=== PATIENT | male | born 1980 | race Caucasian/White ===

== ENCOUNTER → 2016-08-01 | Outpatient (REF) | payer BC ==
[~2016-08-01] MED LIST: asa PO; percocet PO
== END ==
LOC: M LAB REF 16:27
PROVIDERS: ATTEND Internal Medicine
DX: E78.00 Pure hypercholesterolemia, unspecified (principal)

== ENCOUNTER → 2017-04-26 | Outpatient (REF) | payer BC ==
[2017-05-01 12:26] LABS: ALBUMIN 4.31 GM/DL (3.29-5.55); ALBUMIN % 61.6 % (55.8-66.1); GAMMA GLOBULIN % 13.1 % (11.1-18.8)
== END ==
LOC: M LAB REF 13:04
PROVIDERS: ATTEND Internal Medicine
DX: E83.52 Hypercalcemia (principal)

== ENCOUNTER → 2017-08-27 | Outpatient (CLI) | payer BC | LOC: M WUC 11:45 | DX: M25.521 Pain in right elbow (principal) | CPT/HCPCS: 73080 ==

== ENCOUNTER → 2017-10-02 | Outpatient (REF) | payer BC ==
[2017-10-04 08:06] LABS: LDL DIRECT 15 mg/dL (0-99)
== END ==
LOC: M LAB REF 17:13
DX: E78.1 Pure hyperglyceridemia (principal)
CPT/HCPCS: 83721

== ENCOUNTER → 2017-11-07 | Outpatient (REF) | payer BC ==
[2017-11-09 08:06] LABS: LDL DIRECT 79 mg/dL (0-99)
== END ==
LOC: M LAB REF 09:55
DX: E78.00 Pure hypercholesterolemia, unspecified (principal)
CPT/HCPCS: 83721

== ENCOUNTER 2018-05-08 06:32 | Inpatient (IN) | payer BC ==
[2018-05-08] MEDS: NS 1,000 ML IV ×5 (07:30→21:48)
[2018-05-08] MEDS: ONDANSETRON 4MG/2ML VIAL (J2405) IV ×2 (07:30→10:59)
[2018-05-08] MEDS: MORPHINE 4 MG/ML 1ML VIAL/SYRINGE (J2270) IV ×4 (07:32→12:44)
[2018-05-08 07:49] LABS: BASO % 0.3 % (0.0-1.0); EOS # 0.1 10^3/uL (0.0-0.50); EOS % 0.5 % (0.0-3.0); HEMATOCRIT 41.1 % (42.0-52.0); HEMOGLOBIN 14.7 g/dl (13.5-17.5); IMMATURE GRANULOCYTE % 0.6 % (0-3.0); LYMPH % 8.6 % (24.0-44.0); MEAN CORPUSCULAR HEMOGLOBIN 32.3 pg (27.0-33.0); MEAN CORPUSCULAR HGB CONC 35.8 g/dl (32.0-36.5); MEAN CORPUSCULAR VOLUME 90.3 fl (80.0-96.0); MONO # 0.8 10^3/uL (0.0-0.8); MONO % 6.7 % (0.0-5.0); NEUTROPHILS % 83.3 % (36.0-66.0); PLATELET COUNT, AUTOMATED 324 10^3/uL (150-450); RED BLOOD COUNT 4.55 10^6/uL (4.30-6.10); RED CELL DISTRIBUTION WIDTH 12.6 % (11.5-14.5)
[2018-05-08 07:59] LABS: ALBUMIN 4.3 GM/DL (3.2-5.2); ALKALINE PHOSPHATASE 44 U/L (45-117); ALT/SGPT 70 U/L (12-78); ANION GAP 11 MEQ/L (8-16); AST/SGOT 46 U/L (7-37); BILIRUBIN,DIRECT 0.3 MG/DL (0.0-0.2); BILIRUBIN,TOTAL 1.6 MG/DL (0.2-1.0); BLOOD UREA NITROGEN 18 MG/DL (7-18); CARBON DIOXIDE LEVEL 24 MEQ/L (21-32); CHLORIDE LEVEL 101 MEQ/L (98-107); CREATININE FOR GFR 1.28 MG/DL (0.70-1.30); GLOMERULAR FILTRATION RATE > 60.0 (>60); GLUCOSE, FASTING 112 MG/DL (70-100); LIPASE 3321 U/L (73-393); POTASSIUM SERUM 3.9 MEQ/L (3.5-5.1); SODIUM LEVEL 136 MEQ/L (136-145); TOTAL PROTEIN 7.6 GM/DL (6.4-8.2)
[2018-05-08 08:29] LABS: PROTHROMBIN TIME 13.3 SECONDS (12.1-14.4)
[2018-05-08 08:30] LABS: PARTIAL THROMBOPLASTIN TIME 26.5 SECONDS (25.4-37.6)
[2018-05-08] MEDS: amLODIPine 10 MG TAB PO (08:34)
[2018-05-08] MEDS: BENAZEPRIL 20 MG TAB PO (08:42)
[2018-05-08] MEDS: FENOFIBRATE 145 MG TAB (TRICOR) PO (09:00)
[2018-05-08] MEDS: KETOROLAC 30 MG/ML VIAL (J1885) IV (09:25)
[2018-05-08 11:06] LABS: CHOLESTEROL LEVEL 205 MG/DL (<200); CHOLESTEROL RISK RATIO 3.596 (<5); HDL CHOLESTEROL 57 MG/DL (>40); NON-HDL-C 148 MG/DL; TRIGLYCERIDES LEVEL 553 MG/DL (<150)
[2018-05-08] MEDS ORDERED: ONDANSETRON 4MG/2ML VIAL (J2405) IV (13:15)
[2018-05-08] MEDS ORDERED: MORPHINE 4 MG/ML 1ML VIAL/SYRINGE (J2270) IV (13:15)
[2018-05-08] MEDS: ENOXAPARIN 40 MG/0.4 ML SYRINGE (J1650) SC (13:24)
[2018-05-08] MEDS: HYDROmorphone HCL 2 MG/ML 1ML VIAL (J1170) IV ×3 (15:40→21:48)
[2018-05-08] MEDS: **hydrALAZINE HCL** 25 MG TAB PO (17:11)
[2018-05-09] MEDS: HYDROmorphone HCL 2 MG/ML 1ML VIAL (J1170) IV ×6 (00:54→19:39)
[2018-05-09] MEDS: **hydrALAZINE HCL** 25 MG TAB PO ×4 (00:55→16:22)
[2018-05-09] MEDS: KETOROLAC 30 MG/ML VIAL (J1885) IV (03:45)
[2018-05-09] MEDS: NS 1,000 ML IV ×4 (04:07→19:07)
[2018-05-09 06:07] LABS: MEAN CORPUSCULAR HEMOGLOBIN 31.7 pg (27.0-33.0); MEAN CORPUSCULAR HGB CONC 34.2 g/dl (32.0-36.5); MEAN CORPUSCULAR VOLUME 92.8 fl (80.0-96.0); RED BLOOD COUNT 3.88 10^6/uL (4.30-6.10); RED CELL DISTRIBUTION WIDTH 12.8 % (11.5-14.5); WHITE BLOOD COUNT 9.5 10^3/uL (4.0-10.0)
[2018-05-09 06:22] LABS: HEMOGLOBIN 12.3 g/dl (13.5-17.5); PLATELET COUNT, AUTOMATED 221 10^3/uL (150-450)
[2018-05-09 06:35] LABS: ALBUMIN/GLOBULIN RATIO 1.03 (1.00-1.93); ALKALINE PHOSPHATASE 33 U/L (45-117); ALT/SGPT 36 U/L (12-78); ANION GAP 9 MEQ/L (8-16); AST/SGOT 22 U/L (7-37); BILIRUBIN,TOTAL 1.3 MG/DL (0.2-1.0); BLOOD UREA NITROGEN 10 MG/DL (7-18); CALCIUM LEVEL 7.4 MG/DL (8.5-10.1); CARBON DIOXIDE LEVEL 25 MEQ/L (21-32); CHLORIDE LEVEL 105 MEQ/L (98-107); CREATININE FOR GFR 0.93 MG/DL (0.70-1.30); GLOMERULAR FILTRATION RATE > 60.0 (>60); GLUCOSE, FASTING 79 MG/DL (70-100); MAGNESIUM LEVEL 1.4 MG/DL (1.8-2.4); POTASSIUM SERUM 3.5 MEQ/L (3.5-5.1); SODIUM LEVEL 139 MEQ/L (136-145); TOTAL PROTEIN 5.9 GM/DL (6.4-8.2)
[2018-05-09] MEDS ORDERED: MAG SULF 1GM/100ML (MAG RUN) 1 GM in APPROPRIATE DILUENT 1 EA IV (09:00)
[2018-05-09 09:02] LABS: LIPASE 6218 U/L (73-393)
[2018-05-09] MEDS: MAG SULF 1GM/100ML (MAG RUN) 1 GM in APPROPRIATE DILUENT 1 EA IV ×2 (09:07→10:00)
[2018-05-09] MEDS: POTASSIUM CHLORIDE 10% LIQ 20 MEQ/15 ML UDC PO (09:08)
[2018-05-09] MEDS: PANTOPRAZOLE 40MG INJ (PROTONIX) (C9113) IV (09:08)
[2018-05-09] MEDS: ENOXAPARIN 40 MG/0.4 ML SYRINGE (J1650) SC (09:08)
[2018-05-09] MEDS: FENOFIBRATE 145 MG TAB (TRICOR) PO (09:10)
[2018-05-09] MEDS: amLODIPine 10 MG TAB PO (09:12)
[2018-05-09] MEDS: HYDROMORPHONE HCL 0.5 MG/ 0.5 ML SYRINGE (J1170 PER 1) IV ×2 (10:47→22:49)
[2018-05-10] MEDS: **hydrALAZINE HCL** 25 MG TAB PO ×4 (00:10→18:35)
[2018-05-10] MEDS: HYDROMORPHONE HCL 0.5 MG/ 0.5 ML SYRINGE (J1170 PER 1) IV ×2 (02:34→06:08)
[2018-05-10 06:24] LABS: HEMATOCRIT 34.6 % (42.0-52.0); MEAN CORPUSCULAR HEMOGLOBIN 31.9 pg (27.0-33.0); MEAN CORPUSCULAR HGB CONC 34.7 g/dl (32.0-36.5); PLATELET COUNT, AUTOMATED 225 10^3/uL (150-450); RED BLOOD COUNT 3.76 10^6/uL (4.30-6.10); RED CELL DISTRIBUTION WIDTH 12.6 % (11.5-14.5); WHITE BLOOD COUNT 9.3 10^3/uL (4.0-10.0)
[2018-05-10 07:01] LABS: ALBUMIN 2.8 GM/DL (3.2-5.2); ALBUMIN/GLOBULIN RATIO 0.76 (1.00-1.93); ALKALINE PHOSPHATASE 37 U/L (45-117); ALT/SGPT 31 U/L (12-78); ANION GAP 10 MEQ/L (8-16); AST/SGOT 18 U/L (7-37); BLOOD UREA NITROGEN 6 MG/DL (7-18); CALCIUM LEVEL 8.2 MG/DL (8.5-10.1); CARBON DIOXIDE LEVEL 24 MEQ/L (21-32); CHLORIDE LEVEL 102 MEQ/L (98-107); CREATININE FOR GFR 0.73 MG/DL (0.70-1.30); GLOMERULAR FILTRATION RATE > 60.0 (>60); GLUCOSE, FASTING 72 MG/DL (70-100); LIPASE 2849 U/L (73-393); POTASSIUM SERUM 3.6 MEQ/L (3.5-5.1); SODIUM LEVEL 136 MEQ/L (136-145); TOTAL PROTEIN 6.5 GM/DL (6.4-8.2)
[2018-05-10] MEDS: HYDROmorphone HCL 2 MG/ML 1ML VIAL (J1170) IV ×5 (09:23→21:28)
[2018-05-10] MEDS: FENOFIBRATE 145 MG TAB (TRICOR) PO (09:23)
[2018-05-10] MEDS: amLODIPine 10 MG TAB PO (09:23)
[2018-05-10] MEDS: PANTOPRAZOLE 40MG INJ (PROTONIX) (C9113) IV (09:23)
[2018-05-10] MEDS: ENOXAPARIN 40 MG/0.4 ML SYRINGE (J1650) SC (09:24)
[2018-05-10] MEDS: GASTROGRAFIN SOLUTION 30ML PO ×2 (15:12)
[2018-05-10] MEDS ORDERED: ISOVUE-370 76% 100ML VIAL (Q9967) As Ordered (16:06)
[2018-05-11] MEDS: HYDROmorphone HCL 2 MG/ML 1ML VIAL (J1170) IV ×7 (00:59→21:25)
[2018-05-11] MEDS: **hydrALAZINE HCL** 25 MG TAB PO ×4 (01:03→18:28)
[2018-05-11 06:45] LABS: HEMATOCRIT 34.8 % (42.0-52.0); HEMOGLOBIN 12.3 g/dl (13.5-17.5); MEAN CORPUSCULAR HEMOGLOBIN 31.9 pg (27.0-33.0); MEAN CORPUSCULAR HGB CONC 35.3 g/dl (32.0-36.5); MEAN CORPUSCULAR VOLUME 90.4 fl (80.0-96.0); PLATELET COUNT, AUTOMATED 264 10^3/uL (150-450); RED BLOOD COUNT 3.85 10^6/uL (4.30-6.10); RED CELL DISTRIBUTION WIDTH 12.5 % (11.5-14.5)
[2018-05-11 07:01] LABS: ALBUMIN 2.9 GM/DL (3.2-5.2); ALBUMIN/GLOBULIN RATIO 0.74 (1.00-1.93); ALKALINE PHOSPHATASE 39 U/L (45-117); ALT/SGPT 25 U/L (12-78); ANION GAP 8 MEQ/L (8-16); AST/SGOT 13 U/L (7-37); BILIRUBIN,TOTAL 0.5 MG/DL (0.2-1.0); BLOOD UREA NITROGEN 8 MG/DL (7-18); CARBON DIOXIDE LEVEL 27 MEQ/L (21-32); CHLORIDE LEVEL 100 MEQ/L (98-107); CREATININE FOR GFR 0.75 MG/DL (0.70-1.30); GLOMERULAR FILTRATION RATE > 60.0 (>60); GLUCOSE, FASTING 143 MG/DL (70-100); MAGNESIUM LEVEL 2.3 MG/DL (1.8-2.4); POTASSIUM SERUM 3.4 MEQ/L (3.5-5.1); SODIUM LEVEL 135 MEQ/L (136-145); TOTAL PROTEIN 6.8 GM/DL (6.4-8.2)
[2018-05-11] MEDS: FENOFIBRATE 145 MG TAB (TRICOR) PO (07:59)
[2018-05-11] MEDS: PANTOPRAZOLE 40MG INJ (PROTONIX) (C9113) IV (07:59)
[2018-05-11] MEDS: ENOXAPARIN 40 MG/0.4 ML SYRINGE (J1650) SC (07:59)
[2018-05-11] MEDS: amLODIPine 10 MG TAB PO (07:59)
[2018-05-12] MEDS: **hydrALAZINE HCL** 25 MG TAB PO ×4 (00:26→18:28)
[2018-05-12] MEDS: HYDROmorphone HCL 2 MG/ML 1ML VIAL (J1170) IV ×5 (00:27→16:23)
[2018-05-12 05:49] LABS: HEMATOCRIT 32.1 % (42.0-52.0); HEMOGLOBIN 11.3 g/dl (13.5-17.5); MEAN CORPUSCULAR HEMOGLOBIN 32.1 pg (27.0-33.0); MEAN CORPUSCULAR HGB CONC 35.2 g/dl (32.0-36.5); MEAN CORPUSCULAR VOLUME 91.2 fl (80.0-96.0); PLATELET COUNT, AUTOMATED 267 10^3/uL (150-450); RED BLOOD COUNT 3.52 10^6/uL (4.30-6.10); RED CELL DISTRIBUTION WIDTH 12.7 % (11.5-14.5); WHITE BLOOD COUNT 6.5 10^3/uL (4.0-10.0)
[2018-05-12 06:13] LABS: ALBUMIN/GLOBULIN RATIO 0.79 (1.00-1.93); ALKALINE PHOSPHATASE 48 U/L (45-117); ALT/SGPT 33 U/L (12-78); ANION GAP 8 MEQ/L (8-16); AST/SGOT 28 U/L (7-37); BILIRUBIN,TOTAL 0.3 MG/DL (0.2-1.0); BLOOD UREA NITROGEN 14 MG/DL (7-18); CALCIUM LEVEL 8.8 MG/DL (8.5-10.1); CARBON DIOXIDE LEVEL 26 MEQ/L (21-32); CHLORIDE LEVEL 103 MEQ/L (98-107); CREATININE FOR GFR 0.88 MG/DL (0.70-1.30); GLOMERULAR FILTRATION RATE > 60.0 (>60); GLUCOSE, FASTING 136 MG/DL (70-100); MAGNESIUM LEVEL 1.9 MG/DL (1.8-2.4); POTASSIUM SERUM 3.2 MEQ/L (3.5-5.1); SODIUM LEVEL 137 MEQ/L (136-145); TOTAL PROTEIN 6.8 GM/DL (6.4-8.2)
[2018-05-12] MEDS: PANTOPRAZOLE 40MG INJ (PROTONIX) (C9113) IV (09:06)
[2018-05-12] MEDS: ENOXAPARIN 40 MG/0.4 ML SYRINGE (J1650) SC (09:06)
[2018-05-12] MEDS: FENOFIBRATE 145 MG TAB (TRICOR) PO (09:07)
[2018-05-12] MEDS: amLODIPine 10 MG TAB PO (09:07)
[2018-05-12] MEDS: POTASSIUM CHLORIDE 10 MEQ SR TABLET PO (09:07)
[2018-05-12 09:39] LABS: C REACTIVE PROTEIN QUANTITATIV 5.69 MG/DL (0.00-0.30)
[2018-05-12] MEDS ORDERED: PERCOCET 5MG/325MG TAB PO (15:15)
[2018-05-12] MEDS: PERCOCET 5MG/325MG TAB PO ×2 (18:26→22:36)
[2018-05-13] MEDS: **hydrALAZINE HCL** 25 MG TAB PO ×2 (01:11→06:59)
[2018-05-13] MEDS: PERCOCET 5MG/325MG TAB PO ×2 (02:56→07:06)
[2018-05-13 06:35] LABS: HEMATOCRIT 33.2 % (42.0-52.0); HEMOGLOBIN 11.4 g/dl (13.5-17.5); MEAN CORPUSCULAR HEMOGLOBIN 31.4 pg (27.0-33.0); MEAN CORPUSCULAR HGB CONC 34.3 g/dl (32.0-36.5); MEAN CORPUSCULAR VOLUME 91.5 fl (80.0-96.0); PLATELET COUNT, AUTOMATED 306 10^3/uL (150-450); RED BLOOD COUNT 3.63 10^6/uL (4.30-6.10); RED CELL DISTRIBUTION WIDTH 12.5 % (11.5-14.5); WHITE BLOOD COUNT 5.6 10^3/uL (4.0-10.0)
[2018-05-13 06:55] LABS: ALBUMIN/GLOBULIN RATIO 0.97 (1.00-1.93); ALKALINE PHOSPHATASE 44 U/L (45-117); ALT/SGPT 40 U/L (12-78); ANION GAP 8 MEQ/L (8-16); AST/SGOT 31 U/L (7-37); BILIRUBIN,TOTAL 0.3 MG/DL (0.2-1.0); BLOOD UREA NITROGEN 16 MG/DL (7-18); C REACTIVE PROTEIN QUANTITATIV 4.02 MG/DL (0.00-0.30); CALCIUM LEVEL 8.6 MG/DL (8.5-10.1); CARBON DIOXIDE LEVEL 26 MEQ/L (21-32); CHLORIDE LEVEL 106 MEQ/L (98-107); CREATININE FOR GFR 0.89 MG/DL (0.70-1.30); GLOMERULAR FILTRATION RATE > 60.0 (>60); GLUCOSE, FASTING 100 MG/DL (70-100); POTASSIUM SERUM 3.7 MEQ/L (3.5-5.1); SODIUM LEVEL 140 MEQ/L (136-145); TOTAL PROTEIN 6.1 GM/DL (6.4-8.2)
[2018-05-13] MEDS: PANTOPRAZOLE 40MG INJ (PROTONIX) (C9113) IV (09:46)
[2018-05-13] MEDS: ENOXAPARIN 40 MG/0.4 ML SYRINGE (J1650) SC (09:46)
[2018-05-13] MEDS: amLODIPine 10 MG TAB PO (10:48)
[2018-05-13] MEDS: FENOFIBRATE 145 MG TAB (TRICOR) PO (10:48)
== END 2018-05-13 11:30 | disposition home or self-care (01) | DRG 282 ==
LOC: M PED 05-12 23:25 → M ED 06:32 → M ED INP 13:07 → M MS5PR 15:15
DX: K85.90 Acute pancreatitis without necrosis or infection, unspecified (principal); I10 Essential (primary) hypertension; E78.1 Pure hyperglyceridemia; E78.5 Hyperlipidemia, unspecified; K21.9 Gastro-esophageal reflux disease without esophagitis; Z79.899 Other long term (current) drug therapy; Z88.8 Allergy status to other drugs, medicaments and biological substances

== ENCOUNTER 2018-11-24 10:26 | Inpatient (IN) | payer BC ==
[~2018-11-24] VITALS: Ht 177.8 cm; Wt 84.5 kg
[2018-11-24] MEDS: LR 1,000 ML IV SCH ×3 (01:50→18:45)
[~2018-11-24 10:26] MED LIST changes: +AMLO10CA29 PO; +AMLODIPINE BENAZEP; +FENO145T13; +FENO145T13 PO; +NAPR-855 PO; +OMEP-221 PO; +PERC5TAB12 PO; +TRAM50TA2 PO
[2018-11-24] MEDS ORDERED: NS 1,000 ML IV ONE (11:15)
[2018-11-24] MEDS ORDERED: KETOROLAC 30 MG/ML VIAL (J1885) IV ONE (11:15)
[2018-11-24] MEDS ORDERED: ONDANSETRON 4MG/2ML VIAL (J2405) IV ONE (11:15)
[2018-11-24 11:41] LABS: BASO # 0.1 10^3/uL (0.0-0.2); BASO % 0.5 % (0.0-1.0); EOS # 0.3 10^3/uL (0.0-0.50); EOS % 2.5 % (0.0-3.0); HEMATOCRIT 38.5 % (42.0-52.0); LYMPH # 1.4 10^3/uL (1.5-4.5); LYMPH % 12.3 % (24.0-44.0); MEAN CORPUSCULAR HEMOGLOBIN 32.6 pg (27.0-33.0); MEAN CORPUSCULAR HGB CONC 36.4 g/dl (32.0-36.5); MEAN CORPUSCULAR VOLUME 89.7 fl (80.0-96.0); MONO # 0.8 10^3/uL (0.0-0.8); MONO % 7.3 % (0.0-5.0); NEUTROPHILS # 8.9 10^3/uL (1.8-7.7); NEUTROPHILS % 77.2 % (36.0-66.0); PLATELET COUNT, AUTOMATED 285 10^3/uL (150-450); RED BLOOD COUNT 4.29 10^6/uL (4.30-6.10); WHITE BLOOD COUNT 11.5 10^3/uL (4.0-10.0)
[2018-11-24 12:19] LABS: ALBUMIN 3.7 GM/DL (3.2-5.2); ALT/SGPT 61 U/L (12-78); AMYLASE 48 U/L (25-115); BILIRUBIN,TOTAL 0.9 MG/DL (0.2-1.0); BLOOD UREA NITROGEN 20 MG/DL (7-18); CALCIUM LEVEL 8.8 MG/DL (8.5-10.1); CARBON DIOXIDE LEVEL 25 MEQ/L (21-32); CHLORIDE LEVEL 102 MEQ/L (98-107); CREATININE FOR GFR 0.94 MG/DL (0.70-1.30); GLOMERULAR FILTRATION RATE > 60.0 (>60); GLUCOSE, FASTING 110 MG/DL (70-100); LIPASE 835 U/L (73-393); POTASSIUM SERUM 3.9 MEQ/L (3.5-5.1); SODIUM LEVEL 135 MEQ/L (136-145); TOTAL PROTEIN 7.5 GM/DL (6.4-8.2)
[2018-11-24] MEDS ORDERED: HYDROMORPHONE HCL 0.5 MG/ 0.5 ML SYRINGE (J1170 PER 1) IV ONE (13:15)
[2018-11-24] MEDS ORDERED: SODIUM CHLORIDE 0.9% 1000ML IV ONE (13:45)
--- NOTE | 2018-11-24 13:51 | REP ---
CT ABDOMEN AND PELVIS WITHOUT CONTRAST: CT abdomen and pelvis is performed without oral or IV contrast. Sagittal and coronal reconstruction images are performed. No infiltrate is seen in the visualized lung bases. There is focal fatty infiltration of the liver anteriorly along the fissure for the ligamentum teres. Spleen, adrenals, and kidneys are unremarkable. There is on hydronephrosis or nephrolithiasis and no evidence of hydroureter. There is diffuse streaky inflammation in the peripancreatic fat compatible with mild pancreatitis. There is no free fluid or fluid collection. No pseudocyst is seen. There is no abdominal aortic aneurysm. There is no adenopathy. There is no free air. No bowel wall thickening is seen. The appendix is normal. Urinary bladder is mildly distended and grossly unremarkable. There appears to be very small inguinal hernias containing fat. IMPRESSION: Findings compatible with mild pancreatitis. No free fluid or pseudocyst seen. Electronically Signed by Alex Meadows MD 11/24/2018 04:38 P
[2018-11-24] MEDS ORDERED: TRAM50TA2 PO (14:17)
[2018-11-24] MEDS ORDERED: BENA25CA4 PO (14:17)
[2018-11-24] MEDS ORDERED: BUPR300T34 PO (14:17)
[2018-11-24] MEDS ORDERED: TIZA4TAB4 PO (14:18)
[2018-11-24 14:22] LABS: ETHYL ALCOHOL (ETHANOL) 0.113 % (0.000-0.010)
--- NOTE | 2018-11-24 15:09 | HPEPDOC ---
General Date of Admission 11/24/18 Date of Service: Nov 24, 2018 Chief Complaint The patient is a 38-year-old male admitted with a reason for visit of Abd Pain. Source: Patient, Old records Exam Limitations: No limitations Severity: Severe History of Present Illness 38-year-old male with past medical history of hypertension, dyslipidemia, and GERD, Acute Pancreatitis in 2018, regular alcohol use about 4 to 5 drinks per night, his last drink he says was about 36 hours ago. He presented to the ER with a chief complaint of abdominal pain. The patient states that his pain started all of a sudden 3 days ago and notes that it is 8 out of 10 in intensity, constant with intermitted sharp spasmodic in quality, located at the left upper quadrant and in the epigastrium and periumbilical area without any radiation. It is associated with nausea and was vomiting profusely yeasterday about 10 times. Also his has been having abnormal stools which are light in color, semisoft small amounts several times a day. In th ED he was found to have elevated lipase , elevated alcohol level in blood and CT abdomen and pelvis was suggestive of[ acute pancreatitis. His Gall bladder US was negative for any gall stones or choledocholithiasis. Patient was admitted for acute Pancreatitis. Home Medications Scheduled Amlodipine Besylate/Benazepril (Amlodipine-Benazepril 10-40 mg) 1 Cap Cap, 1 CAP PO BID, (Reported) Bupropion HCl (Bupropion Xl) 300 Mg Tab.er.24h, 300 MG PO DAILY, (Reported) Diphenhydramine HCl (Benadryl) 25 Mg Capsule, 75 MG PO QHS, (Reported) Fenofibrate Nanocrystallized (Fenofibrate) 145 Mg Tab, 145 MG PO DAILY, (Reported) Omeprazole (Omeprazole) 40 Mg Cap, 40 MG PO DAILY, (Reported) Tizanidine HCl (Tizanidine HCl) 4 Mg Tablet, 4 MG PO QHS, (Reported) Scheduled PRN Tramadol HCl (Tramadol HCl) 50 Mg Tablet, 50 MG PO Q6H PRN for PAIN, (Reported) Allergies Coded Allergies: acetaminophen (Verified Allergy, Unknown, RASH, 11/24/18) cefaclor (Verified Allergy, Unknown, RASH, 11/24/18) cephalexin (Verified Allergy, Unknown, RASH, 11/24/18) hydrocodone (Verified Allergy, Unknown, RASH, 11/24/18) Past Medical History Medical History hypertension, dyslipidemia, and GERD, Acute Pancreatitis in 2018, regular alcohol use Surgical History None Family History Significant Family History: Hypertension (father and mother), Other (sister and uncle with pancreas problems) Social History * Smoker: Denies Alcohol: heavy Drugs: denies A-FIB/CHADSVASC A-FIB History Current/History of A-Fib/PAF?: No Review of Systems Constitutional: Denies: Chills, Fever, Night Sweats Eyes: Denies: Pain, Vision change ENT: Denies: Head Aches, Ear Pain, Dysphagia Skin: Denies: Rash, Lesions, Breakdown Pulmonary: Denies: Dyspnea, Cough Cardiovascular: Denies: Chest Pain, Palpitations, Orthopnea, Paroxysmal Noc. Dyspnea, Lt Headedness Gastrointestinal: Reports: Nausea, Vomiting, Abdominal Pain, Other Symptoms (abnormal stools) Genitourinary: Denies: Dysuria, Frequency, Incontinence, Retention Hematologic: Denies: Bruising, Bleeding Excessively Musculoskeletal: Denies: Neck Pain, Back Pain, Joint Pain, Muscle Pain, Spasms Neurological: Denies: Weakness, Numbness, Change in speech, Confusion Physical Examination General Exam: Positive: Alert, Cooperative, Mild Distress Eye Exam: Positive: PERRLA, Conjunctiva & lids normal, EOMI; Negative: Sclera icteric ENT Exam: Positive: Atraumatic, Mucous membr. moist/pink, Pharynx Normal Neck Exam: Positive: Supple; Negative: JVD, thyromegaly Chest Exam: Positive: Clear to auscultation, Normal air movement Heart Exam: Positive: Rate Normal, Regular Rhythm, Normal S1, Normal S2; Negative: Murmurs, Rubs Abdomen Exam: Positive: BS Hyperactive, Soft, Tenderness (left upper quadrant, epigastrium), Other (rebound tenderness in the left upper quadrant, no guarding or rigidity) Extremity Exam: Positive: Normal pulses; Negative: Clubbing, Cyanosis, Edema Skin Exam: Positive: Nl turgor and temperature; Negative: Breakdown, Lesion Neuro Exam: Positive: Normal Gait, Normal Speech, Cranial Nerves 3-12 NL, Reflexes 2+ Vital Signs Vital Signs Date Time Temp Pulse Resp B/P (MAP) Pulse Ox O2 Delivery O2 Flow Rate FiO2 11/24/18 13:35 20 11/24/18 11:31 11/24/18 10:26 97.6 88 99 Room Air Laboratory Data Labs 24H Laboratory Tests 2 11/24/18 11:08: Immature Granulocyte % (Auto) 0.2, White Blood Count 11.5H, Red Blood Count 4.29L, Hemoglobin 14.0, Hematocrit 38.5L, Mean Corpuscular Volume 89.7, Mean Corpuscular Hemoglobin 32.6, Mean Corpuscular Hemoglobin Concent 36.4, Red Cell Distribution Width 11.7, Platelet Count 285, Neutrophils (%) (Auto) 77.2H, Lymphocytes (%) (Auto) 12.3L, Monocytes (%) (Auto) 7.3H, Eosinophils (%) (Auto) 2.5, Basophils (%) (Auto) 0.5, Neutrophils # (Auto) 8.9H, Lymphocytes # (Auto) 1.4L, Monocytes # (Auto) 0.8, Eosinophils # (Auto) 0.3, Basophils # (Auto) 0.1, Nucleated Red Blood Cells % (auto) 0.0, Anion Gap 8, Glomerular Filtration Rate > 60.0, Blood Urea Nitrogen 20H, Creatinine 0.94, Sodium Level 135L, Potassium Level 3.9, Chloride Level 102, Carbon Dioxide Level 25, Calcium Level 8.8, Aspartate Amino Transf (AST/SGOT) 67H, Alanine Aminotransferase (ALT/SGPT) 61, Alkaline Phosphatase 38L, Total Bilirubin 0.9, Total Protein 7.5, Albumin 3.7, Albumin/Globulin Ratio 0.97L, Amylase Level 48, Lipase 835H CBC/BMP Laboratory Tests 11/24/18 11:08 Red Blood Count 4.29 L, Mean Corpuscular Volume 89.7, Mean Corpuscular Hemoglobin 32.6, Mean Corpuscular Hemoglobin Concent 36.4, Red Cell Distribution Width 11.7, Neutrophils (%) (Auto) 77.2 H, Lymphocytes (%) (Auto) 12.3 L, Monocytes (%) (Auto) 7.3 H, Eosinophils (%) (Auto) 2.5, Basophils (%) (Auto) 0.5, Neutrophils # (Auto) 8.9 H, Lymphocytes # (Auto) 1.4 L, Monocytes # (Auto) 0.8, Eosinophils # (Auto) 0.3, Basophils # (Auto) 0.1, Calcium Level 8.8, Aspartate Amino Transf (AST/SGOT) 67 H, Alanine Aminotransferase (ALT/SGPT) 61, Alkaline Phosphatase 38 L, Total Bilirubin 0.9, Total Protein 7.5, Albumin 3.7 Assessment/Plan 38-year-old male with past medical history of hypertension, dyslipidemia, and GERD, Acute Pancreatitis in 2018, regular alcohol use about 4 to 5 drinks per night, his last drink he says was about 36 hours ago. He presented to the ER with a chief complaint of abdominal pain. The patient states that his pain started all of a sudden 3 days ago and notes that it is 8 out of 10 in in tensity, constant with intermitted sharp spasmodic in quality, located at the left upper quadrant and in the epigastrium and periumbilical area without any radiation. It is associated with nausea and was vomiting profusely yeasterday about 10 times. Also his has been having abnormal stools which are light in color, semisoft small amounts several times a day. In th ED he was found to have elevated lipase , elevated alcohol level in blood and CT abdomen and pelvis was suggestive of[ acute pancreatitis. His Gall bladder US was negative for any gall stones or choledocholithiasis. Patient was admitted for acute Pancreatitis. Acute pancreatitis alcohol related NPO Ringers lactate Dilaudid for pain control and zofran Hypertension will hold amlodipine and benzapril today. will start from tomorrow Hypertriglyceridemia lipid panel will hold fenofibrate today. Alcohol dependence discussed about quitting. GERD PPI DVT prophylaxis ordered Plan / VTE VTE Prophylaxis Ordered?: Yes HAO GLEASON MD Nov 24, 2018 13:55
[2018-11-24 15:26] VITALS: BP 147/94
[2018-11-24] MEDS: PANTOPRAZOLE 40MG INJ (PROTONIX) (C9113) IV SCH (15:34)
[2018-11-24] MEDS: HYDROMORPHONE HCL 0.5 MG/ 0.5 ML SYRINGE (J1170 PER 1) IV PRN ×3 (15:34→21:38)
[2018-11-24 16:29] LABS: CHOLESTEROL LEVEL 195 MG/DL (<200); CHOLESTEROL RISK RATIO 3.611 (<5); HDL CHOLESTEROL 54 MG/DL (>40); NON-HDL-C 141 MG/DL; TRIGLYCERIDES LEVEL 806 MG/DL (<150)
[2018-11-24] MEDS: amLODIPine 10 MG TAB PO SCH (21:39)
[2018-11-24 21:45] VITALS: BP 165/106
[2018-11-24 22:00] VITALS: BP 167/107
[2018-11-24 22:16] VITALS: BP 179/118
[2018-11-24 22:17] VITALS: BP 174/106
[2018-11-24] MEDS: KETOROLAC 30 MG/ML VIAL (J1885) IV SCH (22:45)
[2018-11-24] MEDS: ONDANSETRON 4MG/2ML VIAL (J2405) IV PRN (23:14)
[2018-11-25] MEDS: HYDROMORPHONE HCL 0.5 MG/ 0.5 ML SYRINGE (J1170 PER 1) IV PRN ×8 (00:34→22:25)
[2018-11-25] MEDS: KETOROLAC 30 MG/ML VIAL (J1885) IV SCH ×4 (05:13→23:17)
[2018-11-25 05:42] LABS: BASO % 0.3 % (0.0-1.0); EOS # 0.2 10^3/uL (0.0-0.50); EOS % 2.2 % (0.0-3.0); HEMATOCRIT 37.8 % (42.0-52.0); HEMOGLOBIN 13.8 g/dl (13.5-17.5); LYMPH # 0.8 10^3/uL (1.5-4.5); LYMPH % 8.7 % (24.0-44.0); MEAN CORPUSCULAR HEMOGLOBIN 32.6 pg (27.0-33.0); MEAN CORPUSCULAR HGB CONC 36.5 g/dl (32.0-36.5); MEAN CORPUSCULAR VOLUME 89.4 fl (80.0-96.0); MONO # 0.7 10^3/uL (0.0-0.8); MONO % 6.8 % (0.0-5.0); NEUTROPHILS # 7.8 10^3/uL (1.8-7.7); NEUTROPHILS % 81.6 % (36.0-66.0); PLATELET COUNT, AUTOMATED 242 10^3/uL (150-450); RED BLOOD COUNT 4.23 10^6/uL (4.30-6.10); WHITE BLOOD COUNT 9.6 10^3/uL (4.0-10.0)
[2018-11-25 06:00] VITALS: BP 160/102
[2018-11-25 06:06] LABS: BLOOD UREA NITROGEN 11 MG/DL (7-18); CALCIUM LEVEL 8.2 MG/DL (8.5-10.1); CARBON DIOXIDE LEVEL 27 MEQ/L (21-32); CHLORIDE LEVEL 100 MEQ/L (98-107); CREATININE FOR GFR 0.84 MG/DL (0.70-1.30); GLOMERULAR FILTRATION RATE > 60.0 (>60); GLUCOSE, FASTING 85 MG/DL (70-100); LIPASE 1467 U/L (73-393); MAGNESIUM LEVEL 1.6 MG/DL (1.8-2.4); POTASSIUM SERUM 3.3 MEQ/L (3.5-5.1); SODIUM LEVEL 134 MEQ/L (136-145)
[2018-11-25] MEDS: LR 1,000 ML IV SCH (06:35)
[2018-11-25] MEDS ORDERED: MAG SULF 1GM/100ML (MAG RUN) 1 GM in APPROPRIATE DILUENT 1 EA IV ONE (06:45)
--- NOTE | 2018-11-25 06:51 | REP ---
RIGHT UPPER QUADRANT ULTRASOUND: Real-time sonographic evaluation of the right upper quadrant performed. Gallbladder demonstrates no evidence of intraluminal sludge or calculi, wall thickening or pericholecystic fluid. There is no intrahepatic or extrahepatic biliary dilatation, common bile duct measuring 5 mm. Liver is enlarged and demonstrates diffuse increased echotexture compatible with diffuse fibrofatty infiltration. Length is 19.5 cm. No gross liver or pancreatic mass is seen. Pancreas is not optimally seen due to overlying bowel gas. Right kidney demonstrates no hydronephrosis with normal size 10.9 cm in length. IMPRESSION: Mild hepatomegaly with diffuse fibrofatty infiltration of the liver. No gallstones, gallbladder wall thickening, pericholecystic fluid or biliary dilatation. Electronically Signed by Alex Meadows MD 11/25/2018 08:27 A
[2018-11-25] MEDS: amLODIPine 10 MG TAB PO SCH ×2 (09:00→20:23)
[2018-11-25] MEDS: ENOXAPARIN 40 MG/0.4 ML SYRINGE (J1650) SC SCH (09:01)
[2018-11-25] MEDS: buPROPion **XL** TABLET 150MG (WELLBUTRIN XL) PO SCH (10:14)
[2018-11-25] MEDS: POTASSIUM CHLORIDE INJ 40 MEQ in LR 1,000 ML IV SCH ×3 (10:14→20:23)
[2018-11-25] MEDS: ONDANSETRON 4MG/2ML VIAL (J2405) IV PRN (11:13)
--- NOTE | 2018-11-25 11:21 | IPNPDOC ---
Subjective Date Seen The patient was seen on 11/25/18. Subjective Chief Complaint/HPI Continues to have severe abdominal pain located at the left upper quadrant and periumbilical region with intermittent cramps. No improvement yet. No appetite. no fever or chills, no vomiting but still has nausea. Says the K pad is helping Objective Physical Examination General Exam: Positive: Alert, Cooperative, Mild Distress Eye Exam: Positive: PERRLA, Conjunctiva & lids normal, EOMI; Negative: Sclera icteric ENT Exam: Positive: Atraumatic, Mucous membr. moist/pink, Pharynx Normal Neck Exam: Positive: Supple; Negative: JVD, thyromegaly Chest Exam: Positive: Clear to auscultation, Normal air movement Heart Exam: Positive: Rate Normal, Regular Rhythm, Normal S1, Normal S2; Negative: Murmurs, Rubs Abdomen Exam: Positive: BS Hyperactive, Soft, Tenderness (left upper quadrant, epigastrium), Other (rebound tenderness in the left upper quadrant, no guarding or rigidity) Extremity Exam: Positive: Normal pulses; Negative: Clubbing, Cyanosis, Edema Skin Exam: Positive: Nl turgor and temperature; Negative: Breakdown, Lesion Neuro Exam: Positive: Normal Gait, Normal Speech, Cranial Nerves 3-12 NL, Reflexes 2+ Assessment /Plan Assessment 38-year-old male with past medical history of hypertension, dyslipidemia, and GERD, Acute Pancreatitis in 2018, regular alcohol use about 4 to 5 drinks per night, his last drink he says was about 36 hours ago. He presented to the ER with a chief complaint of abdominal pain. The patient states that his pain sta rted all of a sudden 3 days ago and notes that it is 8 out of 10 in intensity, constant with intermitted sharp spasmodic in quality, located at the left upper quadrant and in the epigastrium and periumbilical area without any radiation. It is associated with nausea and was vomiting profusely yeasterday about 10 times. Also his has been having abnormal stools which are light in color, semisoft smal l amounts several times a day. In the ED he was found to have elevated lipase , elevated alcohol level in blood and CT abdomen and pelvis was suggestive of acute pancreatitis. His Gall bladder US was negative for any gall stones or choledocholithiasis. Patient was admitted for acute Pancreatitis. Acute pancreatitis alcohol related NPO Ringers lactate Dilaudid for pain control and zofran, ketorolac. Lipase is on the rise. If does not start improving in [address] scan. Hypokalemia replaced Hypertension will hold amlodipine and benzapril today. will start from tomorrow Hypertriglyceridemia lipid panel hold fenofibrate Alcohol dependence discussed about quitting. continue bupropion. GERD PPI Plan/VTE VTE Prophylaxis Ordered?: Yes VS, I&O, 24H, Fishbone Vital Signs/I&O Vital Signs Date Time Temp Pulse Resp B/P (MAP) Pulse Ox O2 Delivery O2 Flow Rate FiO2 11/25/18 09:00 117 160/102 11/25/18 06:35 18 11/25/18 06:00 99.5 95 11/24/18 13:57 Room Air I&O- Last 24 Hours up to 6 AM 11/25/18 06:00 Intake Total 750 ml Output Total 1950 ml Balance -1200 ml Laboratory Data 24H LABS Laboratory Tests 2 11/24/18 11:08: Immature Granulocyte % (Auto) 0.2, White Blood Count 11.5H, Red Blood Count 4.29L, Hemoglobin 14.0, Hematocrit 38.5L, Mean Corpuscular Volume 89.7, Mean Corpuscular Hemoglobin 32.6, Mean Corpuscular Hemoglobin Concent 36.4, Red Cell Distribution Width 11.7, Platelet Count 285, Neutrophils (%) (Auto) 77.2H, Lymphocytes (%) (Auto) 12.3L, Monocytes (%) (Auto) 7.3H, Eosinophils (%) (Auto) 2.5, Basophils (%) (Auto) 0.5, Neutrophils # (Auto) 8.9H, Lymphocytes # (Auto) 1.4L, Monocytes # (Auto) 0.8, Eosinophils # (Auto) 0.3, Basophils # (Auto) 0.1, Nucleated Red Blood Cells % (auto) 0.0, Anion Gap 8, Glomerular Filtration Rate > 60.0, Blood Urea Nitrogen 20H, Creatinine 0.94, Sodium Level 135L, Potassium Level 3.9, Chloride Level 102, Carbon Dioxide Level 25, Calcium Level 8.8, Aspartate Amino Transf (AST/SGOT) 67H, Alanine Aminotransferase (ALT/SGPT) 61, Alkaline Phosphatase 38L, Total Bilirubin 0.9, Triglycerides Level 806H, LDL Cholesterol , Total Protein 7.5, Albumin 3.7, Albumin/Globulin Ratio 0.97L, Total Cholesterol 195, Non-HDL Cholesterol (LDL + VLDL) 141, Total HDL Cholesterol 54, Cholesterol/HDL Ratio 3.611, Amylase Level 48, Lipase 835H, Ethyl Alcohol Level 0.113H 11/24/18 13:49: Urine Color YELLOW, Urine Appearance CLEAR, Urine pH 5.0, Urine Specific [place] 1.028, Urine Protein NEGATIVE, Urine Glucose (UA) NEGATIVE, Urine Ketones TRACEH, Urine Blood NEGATIVE, Urine Nitrite NEGATIVE, Urine Bilirubin NEGATIVE, Urine Urobilinogen 0.2, Urine Leukocyte Esterase NEGATIVE, Urine WBC (Auto) 1, Urine RBC (Auto) 1, Urine Hyaline Casts (Auto) 0, Urine Bacteria (Auto) NEGATIVE, Urine Squamous Epithelial Cells 0, Urine Mucus (Auto) SMALL, Urine Sperm (Auto) 11/25/18 05:19: Immature Granulocyte % (Auto) 0.4, White Blood Count 9.6, Red Blood Count 4.23L, Hemoglobin 13.8, Hematocrit 37.8L, Mean Corpuscular Volume 89.4, Mean Corpuscular Hemoglobin 32.6, Mean Corpuscular Hemoglobin Concent 36.5, Red Cell Distribution Width 11.6, Platelet Count 242, Neutrophils (%) (Auto) 81.6H, Lymphocytes (%) (Auto) 8.7L, Monocytes (%) (Auto) 6.8H, Eosinophils (%) (Auto) 2.2, Basophils (%) (Auto) 0.3, Neutrophils # (Auto) 7.8H, Lymphocytes # (Auto) 0.8L, Monocytes # (Auto) 0.7, Eosinophils # (Auto) 0.2, Basophils # (Auto) 0.0, Nucleated Red Blood Cells % (auto) 0.0, Anion Gap 7L, Glomerular Filtration Rate > 60.0, Blood Urea Nitrogen 11, Creatinine 0.84, Sodium Level 134L, Potassium Level 3.3L, Chloride Level 100, Carbon Dioxide Level 27, Calcium Level 8.2L, Lipase 1467H, Magnesium Level 1.6L CBC/BMP Laboratory Tests 11/24/18 11:08 Red Blood Count 4.29 L, Mean Corpuscular Volume 89.7, Mean Corpuscular Hemoglobin 32.6, Mean Corpuscular Hemoglobin Concent 36.4, Red Cell Distribution Width 11.7, Neutrophils (%) (Auto) 77.2 H, Lymphocytes (%) (Auto) 12.3 L, Monocytes (%) (Auto) 7.3 H, Eosinophils (%) (Auto) 2.5, Basophils (%) (Auto) 0.5, Neutrophils # (Auto) 8.9 H, Lymphocytes # (Auto) 1.4 L, Monocytes # (Auto) 0.8, Eosinophils # (Auto) 0.3, Basophils # (Auto) 0.1, Calcium Level 8.8, Aspartate Amino Transf (AST/SGOT) 67 H, Alanine Aminotransferase (ALT/SGPT) 61, Alkaline Phosphatase 38 L, Total Bilirubin 0.9, Triglycerides Level 806 H, LDL Cholesterol , Total Protein 7.5, Albumin 3.7 11/25/18 05:19 Red Blood Count 4.23 L, Mean Corpuscular Volume 89.4, Mean Corpuscular Hemoglobin 32.6, Mean Corpuscular Hemoglobin Concent 36.5, Red Cell Distribution Width 11.6, Neutrophils (%) (Auto) 81.6 H, Lymphocytes (%) (Auto) 8.7 L, Monocytes (%) (Auto) 6.8 H, Eosinophils (%) (Auto) 2.2, Basophils (%) (Auto) 0.3, Neutrophils # (Auto) 7.8 H, Lymphocytes # (Auto) 0.8 L, Monocytes # (Auto) 0.7, Eosinophils # (Auto) 0.2, Basophils # (Auto) 0.0, Calcium Level 8.2 L HAO GLEASON MD Nov 25, 2018 09:06
[2018-11-25 14:00] VITALS: BP 158/92
[2018-11-25] MEDS: PANTOPRAZOLE 40MG INJ (PROTONIX) (C9113) IV SCH (14:28)
[2018-11-25 17:00] VITALS: BP 148/96
[2018-11-25 21:45] VITALS: BP 155/100
[2018-11-26] MEDS: HYDROMORPHONE HCL 0.5 MG/ 0.5 ML SYRINGE (J1170 PER 1) IV PRN ×6 (01:23→20:22)
[2018-11-26] MEDS: POTASSIUM CHLORIDE INJ 40 MEQ in LR 1,000 ML IV SCH ×4 (03:15→23:07)
[2018-11-26] MEDS: KETOROLAC 30 MG/ML VIAL (J1885) IV SCH ×4 (05:33→23:07)
[2018-11-26 06:00] VITALS: BP 137/81
[2018-11-26 06:53] LABS: BASO % 0.2 % (0.0-1.0); EOS # 0.2 10^3/uL (0.0-0.50); EOS % 2.1 % (0.0-3.0); HEMATOCRIT 34.4 % (42.0-52.0); HEMOGLOBIN 12.2 g/dl (13.5-17.5); LYMPH # 0.6 10^3/uL (1.5-4.5); LYMPH % 7.1 % (24.0-44.0); MEAN CORPUSCULAR HEMOGLOBIN 31.8 pg (27.0-33.0); MEAN CORPUSCULAR HGB CONC 35.5 g/dl (32.0-36.5); MEAN CORPUSCULAR VOLUME 89.6 fl (80.0-96.0); MONO # 0.5 10^3/uL (0.0-0.8); NEUTROPHILS # 6.9 10^3/uL (1.8-7.7); NEUTROPHILS % 84.2 % (36.0-66.0); PLATELET COUNT, AUTOMATED 219 10^3/uL (150-450); RED BLOOD COUNT 3.84 10^6/uL (4.30-6.10); WHITE BLOOD COUNT 8.2 10^3/uL (4.0-10.0)
[2018-11-26 07:18] LABS: BLOOD UREA NITROGEN 8 MG/DL (7-18); CALCIUM LEVEL 9.2 MG/DL (8.5-10.1); CARBON DIOXIDE LEVEL 27 MEQ/L (21-32); CHLORIDE LEVEL 98 MEQ/L (98-107); CREATININE FOR GFR 0.95 MG/DL (0.70-1.30); GLOMERULAR FILTRATION RATE > 60.0 (>60); GLUCOSE, FASTING 86 MG/DL (70-100); LIPASE 925 U/L (73-393); SODIUM LEVEL 133 MEQ/L (136-145)
[2018-11-26] MEDS: ENOXAPARIN 40 MG/0.4 ML SYRINGE (J1650) SC SCH (08:52)
[2018-11-26] MEDS: amLODIPine 10 MG TAB PO SCH ×2 (08:52→20:21)
[2018-11-26] MEDS: buPROPion **XL** TABLET 150MG (WELLBUTRIN XL) PO SCH (10:01)
[2018-11-26 14:00] VITALS: BP 141/56
--- NOTE | 2018-11-26 15:53 | IPNPDOC ---
Text Note Date of Service The patient was seen on 11/26/18. NOTE Subjective: Patient is 38-year-old male with a past medical history of hypertension, dyslipidemia, GERD and episode of acute necrotizing 2018 2/2 EtoH abuse who presented to the ER with complaints of abdominal pain associated with nausea. In the Emergency room, patient was found to have an elevated lipase and CT imaging of his abdomen revealed findings compatible with mild pancreatitis. Patient was admitted to hospitalist service for further evaluation and treatment. Patient was seen and examined at the bedside. Patient reports that he is not exp ressing any nausea, vomiting. Still reports that he is expressing abdominal pain. Denies any constipation or diarrhea. Denies any urinary discomfort. Denies chest pain, shortness of breath, palpitations. Patient does report that he has an appetite and is willing to try something. Objective: Vitals (See below) General: Lying in bed, no acute distress, comfortable, AAOx3 HEENT: NC, AT CVS: RRR, +S1S2 Lungs: Fair air entry b/l, no wheezing, rales or rhonchi Abdomen: Soft, ND, tenderness appreciated at left lower quadrant, left upper quadrant, no epigastric tenderness is appreciated Extremities: - Edema, - Calf tenderness Assessment and plan: Abdominal pain - likely 2/2 Acute pancreatitis - likely 2/2 Alcohol use - Reports resolution of nausea / vomiting, return of appetite - Physical with abdominal tenderness noted - Lipase level trending down - Lipid profile noted - c/w Aggressive IV fluid hydration, pain control, nausea control - Will advance diet to clear liquids today - Will repeat imaging if abdominal pain fails to resolve within 48 hours s/p Hypokalemia Hypertension - BP well controlled - c/w Amlodipine - Will HOLD Benazepril Hypertriglyceridemia - Lipid panel noted - Will restart Fenofibrate Alcohol dependence - Advised cessation - Will start Thiamine, Folic acid and Multivitamins GI prophylaxis - c/w Protonix DVT prophylaxis - c/w Lovenox VS,Fishbone, I+O VS, Fishbone, I+O Laboratory Tests 11/26/18 06:37 Red Blood Count 3.84 L, Mean Corpuscular Volume 89.6, Mean Corpuscular Hemoglobin 31.8, Mean Corpuscular Hemoglobin Concent 35.5, Red Cell Distribution Width 11.7, Neutrophils (%) (Auto) 84.2 H, Lymphocytes (%) (Auto) 7.1 L, Monocytes (%) (Auto) 6.0 H, Eosinophils (%) (Auto) 2.1, Basophils (%) (Auto) 0.2, Neutrophils # (Auto) 6.9, Lymphocytes # (Auto) 0.6 L, Monocytes # (Auto) 0.5, Eosinophils # (Auto) 0.2, Basophils # (Auto) 0.0, Calcium Level 9.2 Vital Signs Date Time Temp Pulse Resp B/P (MAP) Pulse Ox O2 Delivery O2 Flow Rate FiO2 11/26/18 14:00 98.3 96 18 141/56 (84) 97 11/24/18 13:57 Room Air I&O- Last 24 Hours up to 6 AM 11/26/18 06:00 Intake Total 1180 ml Output Total 2550 ml Balance -1370 ml ADA DEXTER MD Nov 26, 2018 15:53
[2018-11-26] MEDS ORDERED: FOLIC ACID 1 MG TAB PO ONE (16:00)
[2018-11-26] MEDS ORDERED: MULTIVITAMINS/MINERALS THERAP 1 TAB PO ONE (16:00)
[2018-11-26] MEDS ORDERED: THIAMINE 100 MG TAB PO ONE (16:00)
[2018-11-26] MEDS: PANTOPRAZOLE 40MG INJ (PROTONIX) (C9113) IV SCH (16:38)
[2018-11-26 22:00] VITALS: BP 150/94
[2018-11-27] MEDS: HYDROMORPHONE HCL 0.5 MG/ 0.5 ML SYRINGE (J1170 PER 1) IV PRN ×4 (00:19→10:48)
[2018-11-27] MEDS: KETOROLAC 30 MG/ML VIAL (J1885) IV SCH ×3 (04:57→17:33)
[2018-11-27] MEDS: POTASSIUM CHLORIDE INJ 40 MEQ in LR 1,000 ML IV SCH ×3 (04:58→17:32)
[2018-11-27 06:00] VITALS: BP 160/96
[2018-11-27 06:57] LABS: BASO % 0.3 % (0.0-1.0); EOS # 0.4 10^3/uL (0.0-0.50); EOS % 5.6 % (0.0-3.0); HEMATOCRIT 36.3 % (42.0-52.0); HEMOGLOBIN 12.5 g/dl (13.5-17.5); LYMPH # 0.9 10^3/uL (1.5-4.5); MEAN CORPUSCULAR HEMOGLOBIN 32.1 pg (27.0-33.0); MEAN CORPUSCULAR HGB CONC 34.4 g/dl (32.0-36.5); MEAN CORPUSCULAR VOLUME 93.3 fl (80.0-96.0); MONO # 0.5 10^3/uL (0.0-0.8); NEUTROPHILS # 4.6 10^3/uL (1.8-7.7); NEUTROPHILS % 71.9 % (36.0-66.0); PLATELET COUNT, AUTOMATED 252 10^3/uL (150-450); RED BLOOD COUNT 3.89 10^6/uL (4.30-6.10); WHITE BLOOD COUNT 6.4 10^3/uL (4.0-10.0)
[2018-11-27 07:15] LABS: BLOOD UREA NITROGEN 7 MG/DL (7-18); CALCIUM LEVEL 9.7 MG/DL (8.5-10.1); CARBON DIOXIDE LEVEL 27 MEQ/L (21-32); CHLORIDE LEVEL 102 MEQ/L (98-107); CREATININE FOR GFR 0.84 MG/DL (0.70-1.30); GLOMERULAR FILTRATION RATE > 60.0 (>60); GLUCOSE, FASTING 84 MG/DL (70-100); POTASSIUM SERUM 4.1 MEQ/L (3.5-5.1); SODIUM LEVEL 135 MEQ/L (136-145)
[2018-11-27 08:03] LABS: MAGNESIUM LEVEL 2.3 MG/DL (1.8-2.4)
[2018-11-27] MEDS: amLODIPine 10 MG TAB PO SCH (08:42)
[2018-11-27] MEDS: ENOXAPARIN 40 MG/0.4 ML SYRINGE (J1650) SC SCH (08:42)
[2018-11-27] MEDS ORDERED: FOLIC ACID 1 MG TAB PO SCH (09:00)
[2018-11-27] MEDS ORDERED: BENAZEPRIL 20 MG TAB PO SCH (09:00)
[2018-11-27] MEDS ORDERED: THIAMINE 100 MG TAB PO SCH (09:00)
[2018-11-27] MEDS ORDERED: FENOFIBRATE 145 MG TAB (TRICOR) PO SCH (09:00)
[2018-11-27] MEDS ORDERED: DICYCLOMINE 10 MG CAP PO PRN (09:00)
[2018-11-27] MEDS ORDERED: MULTIVITAMINS/MINERALS THERAP 1 TAB PO SCH (09:00)
--- NOTE | 2018-11-27 11:38 | IPNPDOC ---
Text Note Date of Service The patient was seen on 11/27/18. NOTE Subjective: Patient is 38-year-old male with a past medical history of hypertension, dyslipidemia, GERD and episode of acute necrotizing 2018 2/2 EtoH abuse who presented to the ER with complaints of abdominal pain associated with nausea. In the Emergency room, patient was found to have an elevated lipase and CT imaging of his abdomen revealed findings compatible with mild pancreatitis. Patient was admitted to hospitalist service for further evaluation and treatment. Patient was seen and examined at the bedside. Patient reports that he's been mae erating his clear liquid diet. He denies nausea or vomiting. Still reports abdominal pain is willing to try a more for his diet. Denies any constipation, diarrhea. Denies any chest pain, shortness of breath or palpitations. Objective: Vitals (See below) General: Lying in bed, no acute distress, comfortable, AAOx3 HEENT: NC, AT CVS: RRR, +S1S2 Lungs: Clear without rhonchi, rales or wheezing Abdomen: Soft, ND, mild tenderness at left upper quadrant noted Extremities: No LE edema, - Calf tenderness Assessment and plan: Abdominal pain - likely 2/2 Acute pancreatitis - likely 2/2 Alcohol use - Has been tolerating clear liquid diet - Lipase level had improved - Lipid profile noted - c/w Aggressive IV fluid hydration, pain control, nausea control - Will advance diet today - Will add Bentyl for abdominal spasms s/p Hypokalemia Hypertension - BP moderately controlled - c/w Amlodipine - Will restart Benazepril Hypertriglyceridemia - Lipid panel noted - c/w Fenofibrate Alcohol dependence - Advised cessation - c/w Thiamine, Folic acid and Multivitamins GI prophylaxis - c/w Protonix DVT prophylaxis - c/w Lovenox Disposition: - Will de-escalate pain meds within 24 hours VS,Fishbone, I+O VS, Fishbone, I+O Laboratory Tests 11/27/18 06:32 Red Blood Count 3.89 L, Mean Corpuscular Volume 93.3, Mean Corpuscular Hemoglobin 32.1, Mean Corpuscular Hemoglobin Concent 34.4, Red Cell Distribution Width 11.9, Neutrophils (%) (Auto) 71.9 H, Lymphocytes (%) (Auto) 14.0 L, Monocytes (%) (Auto) 8.0 H, Eosinophils (%) (Auto) 5.6 H, Basophils (%) (Auto) 0.3, Neutrophils # (Auto) 4.6, Lymphocytes # (Auto) 0.9 L, Monocytes # (Auto) 0.5, Eosinophils # (Auto) 0.4, Basophils # (Auto) 0.0, Calcium Level 9.7 Vital Signs Date Time Temp Pulse Resp B/P (MAP) Pulse Ox O2 Delivery O2 Flow Rate FiO2 11/27/18 10:48 18 11/27/18 08:42 96 160/96 11/27/18 06:00 97.6 96 11/24/18 13:57 Room Air I&O- Last 24 Hours up to 6 AM 11/27/18 06:00 Intake Total 780 ml Output Total 2800 ml Balance -2020 ml ADA DEXTER MD Nov 27, 2018 11:38
[2018-11-27 13:17] VITALS: BP 139/86
[2018-11-27] MEDS: buPROPion **XL** TABLET 150MG (WELLBUTRIN XL) PO SCH (13:20)
[2018-11-27 14:07] VITALS: BP 139/86
[2018-11-27] MEDS: PANTOPRAZOLE 40MG INJ (PROTONIX) (C9113) IV SCH (15:26)
[2018-11-27] MEDS ORDERED: PERCOCET 5MG/325MG TAB PO PRN ×2 (17:45)
[2018-11-27] MEDS ORDERED: DICY1CAP8 PO (18:16)
[2018-11-27] MEDS ORDERED: MULTCAP PO (18:16)
[2018-11-27] MEDS ORDERED: FOLI1TAB11 PO (18:16)
[2018-11-27] MEDS ORDERED: PERC5TAB12 PO (18:16)
[2018-11-27] MEDS ORDERED: THIA100TA PO (18:16)
--- NOTE | 2018-11-27 18:23 | DS.PDOC ---
Discharge Summary General Date of Admission Nov 24, 2018 at 13:40 Date of Discharge 11/27/2018 Discharge Summary PROCEDURES PERFORMED DURING STAY: [None]. ADMITTING DIAGNOSES / DISCHARGE DIAGNOSES: Abdominal pain - likely 2/2 Acute pancreatitis - likely 2/2 Alcohol use s/p Hypokalemia Hypertension Hypertriglyceridemia Alcohol dependence GI prophylaxis DVT prophylaxis COMPLICATIONS/CHIEF COMPLAINT: Acute Pancreatitis. HISTORY OF PRESENT ILLNESS: Patient is 38-year-old male with a past medical history of hypertension, dyslipidemia, GERD and episode of acute necrotizing 2018 2/2 EtoH abuse who presented to the ER with complaints of abdominal pain associated with nausea. In the Emergency room, patient was found to have an elevated lipase and CT imaging of his abdomen revealed findings compatible with mild pancreatitis. Patient was admitted to hospitalist service for further evaluation and treatment. HOSPITAL COURSE: Abdominal pain - likely 2/2 Acute pancreatitis - likely 2/2 Alcohol use - Has been tolerating clear liquid diet - Lipase level had improved - Lipid profile noted - c/w Aggressive IV fluid hydration, pain control, nausea control - Patient has tolerated a full diet; - Bentyl has helped for abdominal spasms; he will be discharged with Percocet for pain control - Advised to follow up with Dr. Estefani Bergman within 7 days. s/p Hypokalemia Hypertension - BP moderately controlled - c/w Amlodipine - Benazepril was restarted late in the hospital course as blood pressure trended up Hypertriglyceridemia - Lipid panel noted - c/w Fenofibrate Alcohol dependence - Advised cessation - c/w Thiamine, Folic acid and Multivitamins GI prophylaxis - c/w Protonix DVT prophylaxis - c/w Lovenox DISCHARGE MEDICATIONS: Please see below. ALLERGIES: Please see below. PHYSICAL EXAMINATION ON DISCHARGE: Vitals (See below) General: Lying in bed, no acute distress, comfortable, AAOx3 HEENT: NC, AT CVS: RRR, +S1S2 Lungs: Clear without rhonchi, rales or wheezing Abdomen: Soft, ND, mild tenderness at left upper quadrant noted Extremities: No LE edema, - Calf tenderness LABORATORY DATA: Please see below. ACTIVITY: [As tolerated]. DISCHARGE PLAN: Follow up with Dr. Estefani Bergman within 7 days Remain compliant with treatment plan and medications Return to the ER if you experience any problems DISPOSITION: Home DISCHARGE CONDITION: [Stable]. TIME SPENT ON DISCHARGE: 45 minutes Vital Signs/I&Os Vital Signs Date Time Temp Pulse Resp B/P (MAP) Pulse Ox O2 Delivery O2 Flow Rate FiO2 11/27/18 14:07 98.6 97 16 139/86 (103) 94 11/24/18 13:57 Room Air I&O- Last 24 Hours up to 6 AM 11/27/18 05:59 Intake Total 660 ml Output Total 2950 ml Balance -2290 ml Laboratory Data Labs 24H Laboratory Tests 2 11/27/18 06:32: Immature Granulocyte % (Auto) 0.2, White Blood Count 6.4, Red Blood Count 3.89L, Hemoglobin 12.5L, Hematocrit 36.3L, Mean Corpuscular Volume 93.3, Mean Corpuscular Hemoglobin 32.1, Mean Corpuscular Hemoglobin Concent 34.4, Red Cell Distribution Width 11.9, Platelet Count 252, Neutrophils (%) (Auto) 71.9H, Lymphocytes (%) (Auto) 14.0L, Monocytes (%) (Auto) 8.0H, Eosinophils (%) (Auto) 5.6H, Basophils (%) (Auto) 0.3, Neutrophils # (Auto) 4.6, Lymphocytes # (Auto) 0.9L, Monocytes # (Auto) 0.5, Eosinophils # (Auto) 0.4, Basophils # (Auto) 0.0, Nucleated Red Blood Cells % (auto) 0.0, Anion Gap 6L, Glomerular Filtration Rate > 60.0, Blood Urea Nitrogen 7, Creatinine 0.84, Sodium Level 135L, Potassium Level 4.1, Chloride Level 102, Carbon Dioxide Level 27, Calcium Level 9.7, Magne sium Level 2.3 CBC/BMP Laboratory Tests 11/27/18 06:32 Red Blood Count 3.89 L, Mean Corpuscular Volume 93.3, Mean Corpuscular Hemoglobin 32.1, Mean Corpuscular Hemoglobin Concent 34.4, Red Cell Distribution Width 11.9, Neutrophils (%) (Auto) 71.9 H, Lymphocytes (%) (Auto) 14.0 L, Monocytes (%) (Auto) 8.0 H, Eosinophils (%) (Auto) 5.6 H, Basophils (%) (Auto) 0.3, Neutrophils # (Auto) 4.6, Lymphocytes # (Auto) 0.9 L, Monocytes # (Auto) 0.5, Eosinophils # (Auto) 0.4, Basophils # (Auto) 0.0, Calcium Level 9.7 Discharge Medications Scheduled Amlodipine Besylate/Benazepril (Amlodipine-Benazepril 10-40 mg) 1 Cap Cap, 1 CAP PO BID, (Reported) Bupropion HCl (Bupropion Xl) 300 Mg Tab.er.24h, 300 MG PO DAILY, (Reported) Diphenhydramine HCl (Benadryl) 25 Mg Capsule, 75 MG PO QHS, (Reported) Fenofibrate Nanocrystallized (Fenofibrate) 145 Mg Tab, 145 MG PO DAILY, (Reported) Folic Acid (Folic Acid) 1 Mg Tablet, 1 MG PO DAILY Multivitamin (Multivitamins) 1 Each Capsule, 1 CAP PO DAILY Omeprazole (Omeprazole) 40 Mg Cap, 40 MG PO DAILY, (Reported) Thiamine Hcl (Vitamin B-1) 100 Mg Tablet, 100 MG PO DAILY Tizanidine HCl (Tizanidine HCl) 4 Mg Tablet, 4 MG PO QHS, (Reported) Scheduled PRN Dicyclomine HCl (Dicyclomine HCl) 10 Mg Capsule, 10 MG PO Q8HP PRN for abdominal spasms Oxycodone HCl/Acetaminophen (Percocet 5-325 mg Tablet) 1 Each Tablet, 1-2 TAB PO Q8HP PRN for MODERATE/SEVERE PAIN (PS 5-10) [employer] verifed Reference #: [id number] Allergies Coded Allergies: acetaminophen (Verified Allergy, Unknown, RASH, 11/24/18) cefaclor (Verified Allergy, Unknown, RASH, 11/24/18) cephalexin (Verified Allergy, Unknown, RASH, 11/24/18) hydrocodone (Verified Allergy, Unknown, RASH, 11/24/18) ADA DEXTER MD Nov 27, 2018 18:23
== END 2018-11-27 18:30 | disposition home or self-care (01) | DRG 282 ==
LOC: M ED 10:26 → M ED INP 13:40 → M MS5PR 15:20 → M MS4PR 11-25 16:55
PROVIDERS: ADMIT Internal Medicine Nephrology; ATTEND Internal Medicine
DX: K85.20 Alcohol induced acute pancreatitis without necrosis or infection (principal); I10 Essential (primary) hypertension; E87.6 Hypokalemia; F10.20 Alcohol dependence, uncomplicated; E78.1 Pure hyperglyceridemia; K21.9 Gastro-esophageal reflux disease without esophagitis; Z79.899 Other long term (current) drug therapy; Z88.5 Allergy status to narcotic agent; Z88.8 Allergy status to other drugs, medicaments and biological substances

== ENCOUNTER → 2018-12-05 | Outpatient (REF) | payer BC ==
[~2018-12-05] MED LIST changes: +BENA25CA4 PO; +BUPR300T34 PO; +DICY1CAP8 PO; +FOLI1TAB11 PO; +MULTCAP PO; +THIA100TA PO; +TIZA4TAB4 PO
[2018-12-05 18:28] LABS: AMYLASE 41 U/L (25-115); LIPASE 428 U/L (73-393)
== END ==
LOC: M LAB REF 17:33
PROVIDERS: ATTEND Nurse Practitioner Family
DX: K85.90 Acute pancreatitis without necrosis or infection, unspecified (principal)

== ENCOUNTER → 2019-01-03 | Outpatient (CLI) | payer BC ==
[~2019-01-03] MED LIST changes: +AMLO10CA22 PO; -AMLO10CA29 PO
--- NOTE | 2019-01-03 17:58 | REP ---
Lumbar spine five views: There are no comparisons. Vertebral body heights, interspacing alignment are normal. There is no spondylolysis or spondylolisthesis. The pedicles and facets are unremarkable. The sacroiliac articulations are unremarkable. Impression: Negative lumbar spine. Electronically Signed by Alex Samuels MD 01/03/2019 05:49 P
== END ==
LOC: M WUC 16:45
PROVIDERS: ATTEND Physician Assistant
DX: M54.5 Low back pain (principal)

== ENCOUNTER → 2019-05-12 | Outpatient (REF) | payer BC ==
[2019-05-14 11:05] LABS: LDL DIRECT 106 mg/dL (0-99)
== END ==
LOC: M LAB REF 16:14
PROVIDERS: ATTEND Internal Medicine
DX: E78.1 Pure hyperglyceridemia (principal); K85.20 Alcohol induced acute pancreatitis without necrosis or infection

== ENCOUNTER → 2020-02-20 | Outpatient (REF) | payer BC ==
[~2020-02-20] MED LIST changes: -BUPR300T34 PO; +BUPR300T92 PO; -FENO145T13; -FENO145T13 PO; +FENO145T7; +FENO145T7 PO
== END ==
LOC: M LAB REF 12:12
PROVIDERS: ATTEND Internal Medicine
DX: R68.82 Decreased libido (principal)

== ENCOUNTER → 2020-03-22 | Outpatient (REF) | payer BC ==
[2020-03-24 14:09] LABS: ANTINUCLEAR ANTIBODIES DIRECT Negative (Negative)
== END ==
LOC: M LAB REF 16:14
PROVIDERS: ATTEND Physician Assistant Medical
DX: R53.83 Other fatigue (principal)

== ENCOUNTER → 2020-03-24 | Outpatient (CLI) | payer SELFPAY | LOC: M LABSMTC 13:49 | PROVIDERS: ATTEND Pediatrics | DX: Z20.828 Contact with and (suspected) exposure to other viral communicable diseases (principal) ==

== ENCOUNTER → 2020-09-08 | Outpatient (REF) | payer BC ==
[2020-09-09 21:07] LABS: TESTOSTERONE FREE (DIRECT) 6.6 pg/mL (8.7-25.1)
== END ==
LOC: M LAB REF 12:08
PROVIDERS: ATTEND Internal Medicine
DX: R68.82 Decreased libido (principal)

== ENCOUNTER → 2020-10-18 | Outpatient (REF) | payer BC | LOC: M LAB REF 12:52 | PROVIDERS: ATTEND Podiatrist | DX: M79.672 Pain in left foot (principal); L03.119 Cellulitis of unspecified part of limb ==

== ENCOUNTER → 2021-01-25 | Outpatient (REF) | payer BC ==
[2021-01-26 16:08] LABS: TESTOSTERONE FREE (DIRECT) 7.3 pg/mL (8.7-25.1)
== END ==
LOC: M LAB REF 11:05
PROVIDERS: ATTEND Internal Medicine
DX: R68.82 Decreased libido (principal)

== ENCOUNTER → 2021-05-20 | Outpatient (REF) ==
[~2021-05-20] MED LIST changes: -AMLO10CA22 PO; +AMLO10CA30 PO; -OMEP-221 PO; +OMEP40CA5 PO; +TIZA10TA PO; -TIZA4TAB4 PO
== END ==
LOC: M LABSMTC 13:00
PROVIDERS: ATTEND Pediatrics
DX: Z11.52 Encounter for screening for COVID-19 (principal)

== ENCOUNTER → 2021-06-07 | Outpatient (REF) | payer BC | LOC: M LAB REF 16:17 | PROVIDERS: ATTEND Internal Medicine | DX: R68.82 Decreased libido (principal) ==